=== PATIENT | male | born 1960 | race Caucasian/White ===

== ENCOUNTER 2017-08-24 23:50 | Inpatient (IN) | payer OTHER ==
[~2017-08-24] VITALS: Ht 182.9 cm; Wt 77.1 kg
[~2017-08-24 23:50] MED LIST: HIV MED PO; INSU100C SQ; INSU100V7 SQ; PARO40TA PO
[2017-08-25] VITALS: BP 104/57
[2017-08-25] MEDS ORDERED: INSULIN REGULAR, HUMAN 1,000 UNITS/10 ML VIAL IV ONE
[2017-08-25 00:10] LABS: BASOPHILS # (AUTO) 0.1 K/uL (0.0-8.0); BASOPHILS % (AUTO) 1.3 % (0.0-2.0); EOSINOPHILS # (AUTO) 0.2 K/uL (0.0-0.7); EOSINOPHILS % (AUTO) 2.8 % (0.0-7.0); HEMATOCRIT 42.5 % (36.7-47.1); HEMOGLOBIN 14.9 g/dL (12.5-16.3); LYMPHOCYTES # (AUTO) 2.4 K/uL (20.0-40.0); LYMPHOCYTES % (AUTO) 42.9 % (20.5-51.5); MEAN CORPUSCULAR HGB CONC 35 g/dL (32.5-36.3); MEAN CORPUSCULAR VOLUME 94.1 fL (73.0-96.2); MONOCYTES # (AUTO) 0.6 K/uL (2.0-10.0); MONOCYTES % (AUTO) 10.6 % (0.0-11.0); NEUTROPHILS # (AUTO) 2.4 K/uL (1.8-8.9); NEUTROPHILS % (AUTO) 42.4 % (38.5-71.5); PLATELET COUNT (AUTO) 290 K/uL (152-348); RED BLOOD CELL COUNT(AUTO) 4.52 MIL/uL (4.06-5.63); WHITE BLOOD COUNT (AUTO) 5.7 K/uL (3.6-10.2)
[2017-08-25 00:20] LABS: BILIRUBIN,DIRECT 0.1 mg/dL (0.0-0.2); BILIRUBIN,TOTAL 0.3 mg/dL (0.2-1.0); POTASSIUM 4.5 mmol/L (3.5-5.1); TOTAL PROTEIN, SERUM 8.1 g/dL (6.4-8.2)
[2017-08-25] MEDS ORDERED: ASPIRIN 325 MG TABLET PO ONE (00:45)
[2017-08-25] MEDS ORDERED: FOLIC ACID 5 MG/ML VIAL IV ONE (00:45)
--- NOTE | 2017-08-25 01:37 | NUR ---
PT AAOX4, IN NO DISTRESS, REPORT CALLED, SPOKE WITH RADAH.LISA
[2017-08-25] MEDS ORDERED: INSULIN REGULAR, HUMAN 300 UNIT/3 ML VIAL ONE (01:39)
[2017-08-25] MEDS ORDERED: ASPIRIN 325 MG TABLET ONE (01:46)
[2017-08-25] MEDS ORDERED: THIAMINE HCL 200 MG/2 ML VIAL ONE (01:46)
--- NOTE | 2017-08-25 01:51 | NUR ---
PER ROOM SERVICE FOOD SERVER (RK) AND PHARMACIST BOARD HANDLER RAY. FOLIC ACID IV NOT AVAILABLE
[2017-08-25] MEDS: THIAMINE HCL 200 MG/2 ML VIAL IV ONE ×2 (01:58→02:24)
[2017-08-25] MEDS ORDERED: FOLIC ACID 1 MG TABLET PO ONE (02:00)
[2017-08-25] MEDS ORDERED: FOLIC ACID 1 MG TABLET ONE (02:26)
[2017-08-25] MEDS ORDERED: MORPHINE SULFATE 2 MG/1 ML DISP.SYRIN IV PRN (02:30)
[2017-08-25] MEDS ORDERED: LORAZEPAM 2 MG/1 ML VIAL IV PRN (02:30)
[2017-08-25] MEDS ORDERED: THIAMINE HCL INJ 100 MG in IV DEXTROSE 5% 50 ML IV SCH (02:30)
[2017-08-25] MEDS ORDERED: ACETAMINOPHEN 325 MG TABLET PO PRN (02:30)
[2017-08-25] MEDS ORDERED: MAGNESIUM HYDROXIDE 30 ML LIQUID UDC PO PRN (02:30)
[2017-08-25] MEDS ORDERED: ONDANSETRON 4 MG/2 ML VIAL IV PRN (02:30)
[2017-08-25] MEDS: IV 1/2NS 1000 ML 1,000 ML IV PRN ×2 (03:16→18:07)
--- NOTE | 2017-08-25 03:18 | NUR ---
Vit B1 Inj 0230 was held d/t given already in ER. Charge nurse aware.
[2017-08-25 04:00] VITALS: BP 96/49
[2017-08-25] MEDS ORDERED: MORPHINE SULFATE 4 MG/1 ML DISP.SYRIN IV PRN (07:15)
--- NOTE | 2017-08-25 08:00 | NUR ---
ALERT AND VERBALLY RESPONSIVE, ORIENTED TO NAME NO SS OF DISTRESS, DENIES HEADACHE, N/V. CLOSELY MONITORED
[2017-08-25] MEDS: FOLIC ACID 1 MG TABLET PO SCH (08:27)
[2017-08-25] MEDS: ASPIRIN EC 81 MG TABLET.DR PO SCH (08:28)
[2017-08-25] MEDS: PANTOPRAZOLE SODIUM 40 MG TABLET.DR PO SCH (08:28)
[2017-08-25] MEDS ORDERED: HIV MED PO SCH (09:00)
[2017-08-25 11:38] VITALS: BP 136/78
--- NOTE | 2017-08-25 12:00 | NUR ---
SEEN BY PHYSICAL THERAPIST SEE NOTES
[2017-08-25] MEDS: THIAMINE HCL 100 MG TABLET PO SCH (14:11)
[2017-08-25 16:00] VITALS: BP 116/75
[2017-08-25 16:18] VITALS: BP 99/48
--- NOTE | 2017-08-25 18:50 | NUR ---
NO ACUTE CHANGE CONTINUE OBSERVATION
[2017-08-25 20:21] VITALS: BP 138/84
[2017-08-25] MEDS ORDERED: MIRTAZAPINE 15 MG TABLET PO SCH (21:00)
[2017-08-25] MEDS ORDERED: DOCUSATE SODIUM 100 MG CAPSULE PO SCH (21:00)
[2017-08-25] MEDS ORDERED: DOCUSATE SODIUM 250 MG CAPSULE PO SCH (21:00)
[2017-08-26 00:23] VITALS: BP 135/70
[2017-08-26 05:00] VITALS: BP 119/72
--- NOTE | 2017-08-26 06:00 | NUR ---
UNEVENTFUL NIGHT .PATIENT MOST OF THE NIGHT . DUE MEDICATION SCAN AND GIVEN .NO COMPLAINED RECEIVED FROM PATIENT .
[2017-08-26] MEDS: PANTOPRAZOLE SODIUM 40 MG TABLET.DR PO SCH (06:32)
[2017-08-26] MEDS: FOLIC ACID 1 MG TABLET PO SCH (08:29)
[2017-08-26] MEDS: THIAMINE HCL 100 MG TABLET PO SCH (08:29)
[2017-08-26] MEDS: ASPIRIN EC 81 MG TABLET.DR PO SCH (08:29)
[2017-08-26 11:05] VITALS: BP 133/81
[2017-08-26 15:26] VITALS: BP 133/82
[2017-08-26] MEDS ORDERED: HYDROCODONE/APAP 5-325MG TABLET PO PRN (15:30)
--- NOTE | 2017-08-26 15:53 | NUR ---
PT LEFT THE FACILITY WITHOUT TELLING ANYONE. I CAME BACK FORM LUNCH AND HE WAS GONE. CHARGE NOTIFIED, DOCTOR NOTIFIED.
[2017-08-26] MEDS ORDERED: MIRTAZAPINE 15 MG TABLET PO SCH (21:00)
== END 2017-08-26 15:30 | disposition left against medical advice (07) | DRG 47 ==
LOC: ER 23:52 → TELE 08-25 02:16 → MED 08-26 11:25
PROVIDERS: ADMIT Internal Medicine; ATTEND Internal Medicine
DX: G45.9 Transient cerebral ischemic attack, unspecified (principal); G92 Toxic encephalopathy; F33.2 Major depressive disorder, recurrent severe without psychotic features; E87.2 Acidosis; I67.2 Cerebral atherosclerosis; E11.65 Type 2 diabetes mellitus with hyperglycemia; F10.229 Alcohol dependence with intoxication, unspecified; Y90.8 Blood alcohol level of 240 mg/100 ml or more; Z79.4 Long term (current) use of insulin; F09 Unspecified mental disorder due to known physiological condition; Z79.899 Other long term (current) drug therapy; F17.210 Nicotine dependence, cigarettes, uncomplicated; Z86.19 Personal history of other infectious and parasitic diseases; I25.10 Atherosclerotic heart disease of native coronary artery without angina pectoris; I10 Essential (primary) hypertension; M48.02 Spinal stenosis, cervical region; M25.78 Osteophyte, vertebrae; Z86.73 Personal history of transient ischemic attack (TIA), and cerebral infarction without residual deficits; B19.20 Unspecified viral hepatitis C without hepatic coma; E78.5 Hyperlipidemia, unspecified
CPT/HCPCS: 36415; 70030-TC; 70450; 71010; 72125; 85025; 85730; 93005; 97116; 97530; A4663; G0480; J1815; J3411; J3490; J7030

== ENCOUNTER 2017-08-27 20:08 | Inpatient (IN) | payer OTHER ==
[~2017-08-27] VITALS: Ht 182.9 cm; Wt 77.3 kg
[~2017-08-27 20:08] MED LIST changes: -INSU100C SQ; -PARO40TA PO
[2017-08-27] MEDS ORDERED: IV NORMAL SALINE 1000 ML BAG IV ONE (20:45)
--- NOTE | 2017-08-27 21:00 | NUR ---
pt refusing iv placement - informed of need for iv to treat elevated bllod glucose of 599 - and of complications that can develop if glucose level not adequately treated - pt continues to refuse
[2017-08-27 21:03] LABS: ABG BASE EXCESS -5.8 mmol/L; ABG PCO2 35.3 mmHg (35.0-45.0); ABG PH 7.348 (7.350-7.450); ABG PO2 78.4 mmHg (75.0-100.0); ABG SITE RIGHT RADIAL; ABG TOTAL HEMOGLOBIN 15.1 G/dL (13.5-18.0); COHb 3.7 % (0.5-1.5); MetHb 0.1 % (0.0-1.5); O2Hb 91.4 % (94.0-97.0)
[2017-08-27 21:20] LABS: BASOPHILS # (AUTO) 0.1 K/uL (0.0-8.0); BASOPHILS % (AUTO) 0.8 % (0.0-2.0); EOSINOPHILS # (AUTO) 0.1 K/uL (0.0-0.7); EOSINOPHILS % (AUTO) 1.2 % (0.0-7.0); HEMATOCRIT 45.4 % (40-50); HEMOGLOBIN 15.7 G/DL (14.0-18.0); LYMPHOCYTES # (AUTO) 2.1 K/UL (0.8-4.8); LYMPHOCYTES % (AUTO) 31.5 % (20.5-51.5); MEAN CORPUSCULAR HEMOGLOBIN 32.2 UUG (27.0-31.0); MEAN CORPUSCULAR HGB CONC 35 g/dL (32.0-37.0); MEAN CORPUSCULAR VOLUME 93.2 FL (82.0-92.0); MONOCYTES # (AUTO) 0.6 K/UL (0.1-1.30); NEUTROPHILS # (AUTO) 3.9 K/UL (1.8-8.9); NEUTROPHILS % (AUTO) 57.5 % (38.5-71.5); PLATELET COUNT (AUTO) 308 K/UL (150-450); RED BLOOD CELL COUNT(AUTO) 4.87 MIL/UL (4.7-6.1); WHITE BLOOD COUNT (AUTO) 6.8 K/UL (4.0-11.2)
[2017-08-27 21:42] LABS: BILIRUBIN,DIRECT 0.1 mg/dL (0.0-0.2); BILIRUBIN,TOTAL 0.5 mg/dL (0.2-1.0); CREATININE 1.2 mg/dL (0.6-1.3); POTASSIUM 4.5 mmol/L (3.5-5.1); TOTAL PROTEIN, SERUM 8.3 g/dL (6.4-8.2)
[2017-08-27] MEDS ORDERED: PIPERACILLIN/TAZOBACTAM/D5W 3.375 G in PREMIXED 1 EACH IV STA (21:56)
[2017-08-27] MEDS ORDERED: INSULIN REGULAR, HUMAN 1,000 UNITS/10 ML VIAL SUBCUT ONE (22:00)
--- NOTE | 2017-08-27 22:00 | NUR ---
PAGED EPPIC PANEL FOR ADMISSION OF PATIENT. WAITING FOR LJ VALE DNP TO CALL BACK
--- NOTE | 2017-08-27 23:15 | NUR ---
RECEIVED ADMISSION REPORT FROM WILLIAN FROM ER.
[2017-08-28] MEDS ORDERED: IV NS 1000 ML 1,000 ML IV PRN (00:35)
[2017-08-28] MEDS ORDERED: THIAMINE HCL INJ 100 MG in IV DEXTROSE 5% 50 ML IV STA (00:35)
[2017-08-28] MEDS: FOLIC ACID 1 MG TABLET PO SCH ×2 (00:45→09:36)
[2017-08-28] MEDS ORDERED: Z GUARD REMEDY PASTE 57 GM TUBE TOP PRN (00:45)
[2017-08-28] MEDS ORDERED: ONDANSETRON 4 MG/2 ML VIAL IV PRN (00:45)
[2017-08-28] MEDS ORDERED: ACETAMINOPHEN 325 MG TABLET PO PRN (00:45)
[2017-08-28] MEDS ORDERED: DEXTROSE 50% 50 ML DISP.SYRIN IV PRN (00:45)
--- NOTE | 2017-08-28 01:05 | NUR ---
ADMITTED PATIENT FROM ER VIA [facility]. AAOX4, AMBULATORY WITH SLOW STEADY GAIT. DENIES ANY PAIN/DISCOMFORTS AT THIS TIME. ROUTINE ADMISSION CARE DONE. PLAN OF CARE INITIATED.
--- NOTE | 2017-08-28 01:08 | NUR ---
TRANSFERED TO 2ND FLOOR VIA [facility]
[2017-08-28 01:20] VITALS: BP 132/84
[2017-08-28] MEDS: BLOOD SUGAR DIAGNOSTIC 1 EACH STRIP VI SCH ×5 (01:49→21:11)
[2017-08-28] MEDS: INSULIN REGULAR, HUMAN 300 UNIT/3 ML VIAL SQ PRN ×5 (01:52→21:16)
[2017-08-28] MEDS: INSULIN DETEMIR 300 UNIT/3 ML CARTRIDGE SQ SCH ×2 (01:55→21:13)
[2017-08-28] MEDS ORDERED: THIAMINE HCL 200 MG/2 ML VIAL ONE (01:58)
--- NOTE | 2017-08-28 01:58 | NUR ---
PATIENT BEEN REFUSING IV PLACEMENT, NO IV MEDICATIONS WAS GIVEN. BS 398MG/DL SLIDING SCALE COVERAGE GIVEN ORDERED. DENIES ANY S/S OF HYPERGLYCEMIA. HS SNACK PROVIDED. WILL MONITOR.
--- NOTE | 2017-08-28 02:09 | NUR ---
NO IVF ADMINISTRATION INITIATED, PT HAS NO IV LINE, PT REFUSED
[2017-08-28 04:00] VITALS: BP 109/61
--- NOTE | 2017-08-28 06:05 | NUR ---
SLEPT GOOD. NO COMPLAINT PRESENTED ALL NIGHT. ALL NEEDS ATTENDED AND MET. NO SIGNIFICANT EVENT REPORTED ALL NIGHT. VS STABLE.
[2017-08-28 07:07] LABS: BASOPHILS # (AUTO) 0.1 K/uL (0.0-8.0); BASOPHILS % (AUTO) 1.2 % (0.0-2.0); EOSINOPHILS # (AUTO) 0.1 K/uL (0.0-0.7); EOSINOPHILS % (AUTO) 1.6 % (0.0-7.0); HEMOGLOBIN 14.2 g/dL (12.5-16.3); LYMPHOCYTES # (AUTO) 1.4 K/uL (20.0-40.0); LYMPHOCYTES % (AUTO) 19.7 % (20.5-51.5); MEAN CORPUSCULAR HGB CONC 36 g/dL (32.5-36.3); MEAN CORPUSCULAR VOLUME 92.6 fL (73.0-96.2); MONOCYTES # (AUTO) 0.6 K/uL (2.0-10.0); MONOCYTES % (AUTO) 8.4 % (0.0-11.0); NEUTROPHILS # (AUTO) 4.8 K/uL (1.8-8.9); NEUTROPHILS % (AUTO) 69.1 % (38.5-71.5); PLATELET COUNT (AUTO) 242 K/uL (152-348); RED BLOOD CELL COUNT(AUTO) 4.31 MIL/uL (4.06-5.63)
[2017-08-28 07:12] LABS: BILIRUBIN,TOTAL 0.4 mg/dL (0.2-1.0); CREATININE 0.9 mg/dL (0.6-1.3); PHOSPHOROUS 3.4 mg/dL (2.5-4.9); TOTAL PROTEIN, SERUM 7.5 g/dL (6.4-8.2)
[2017-08-28] MEDS: THIAMINE HCL 100 MG TABLET PO SCH (09:36)
[2017-08-28 11:18] VITALS: BP 113/71
[2017-08-28] MEDS ORDERED: LORAZEPAM 2 MG/1 ML VIAL IV PRN (13:15)
[2017-08-28] MEDS: LORAZEPAM 1 MG TABLET PO PRN ×2 (14:37→20:14)
[2017-08-28 15:21] VITALS: BP 112/78
[2017-08-28] MEDS: INSULIN LISPRO 1000 UNITS/10 ML VIAL(HUMALOG) SQ SCH (17:35)
--- NOTE | 2017-08-29 05:15 | NUR ---
GIVEN ATIVAN ORDERED AND REQUESTED BY PT, SLEPT MOST OF THE NIGHT. NO OTHER COMPLAINTS DURING SHIFT. BS WAS 297 LAST NIGHT, GIVEN COVERAGE PER SLIDING SCALE. SNACK GIVEN. STILL REFUSING IV. PT HAS BEEN TAKING ORAL FLUIDS. TOLERATED WELL.
[2017-08-29] MEDS: BLOOD SUGAR DIAGNOSTIC 1 EACH STRIP VI SCH ×4 (06:43→20:05)
[2017-08-29 06:56] VITALS: BP 99/63
[2017-08-29 07:01] LABS: BASOPHILS # (AUTO) 0.1 K/uL (0.0-8.0); BASOPHILS % (AUTO) 1.4 % (0.0-2.0); EOSINOPHILS # (AUTO) 0.2 K/uL (0.0-0.7); EOSINOPHILS % (AUTO) 2.6 % (0.0-7.0); HEMATOCRIT 43.1 % (36.7-47.1); HEMOGLOBIN 15.2 g/dL (12.5-16.3); LYMPHOCYTES # (AUTO) 1.7 K/uL (20.0-40.0); LYMPHOCYTES % (AUTO) 28.1 % (20.5-51.5); MEAN CORPUSCULAR HEMOGLOBIN 32.7 uug (23.8-33.4); MEAN CORPUSCULAR HGB CONC 35 g/dL (32.5-36.3); MONOCYTES # (AUTO) 0.7 K/uL (2.0-10.0); MONOCYTES % (AUTO) 10.7 % (0.0-11.0); NEUTROPHILS # (AUTO) 3.5 K/uL (1.8-8.9); NEUTROPHILS % (AUTO) 57.2 % (38.5-71.5); PLATELET COUNT (AUTO) 208 K/uL (152-348); RED BLOOD CELL COUNT(AUTO) 4.63 MIL/uL (4.06-5.63); WHITE BLOOD COUNT (AUTO) 6.1 K/uL (3.6-10.2)
[2017-08-29 07:07] LABS: BILIRUBIN,TOTAL 0.6 mg/dL (0.2-1.0); CREATININE 0.9 mg/dL (0.6-1.3); POTASSIUM 3.8 mmol/L (3.5-5.1); TOTAL PROTEIN, SERUM 7.1 g/dL (6.4-8.2)
[2017-08-29 07:14] LABS: THYROID STIMULATING HORMONE 1.179 mIU/mL (0.358-3.740)
--- NOTE | 2017-08-29 08:30 | NUR ---
AWAKE ALERT COOPERATE WELL NO ACUTE DISTRESS OR PAIN RESTING WITH CALL VALDEZ IN REACH AND INSTRUCTION TO CALL WHEN NEEDED
[2017-08-29] MEDS: THIAMINE HCL 100 MG TABLET PO SCH (09:20)
[2017-08-29] MEDS: FOLIC ACID 1 MG TABLET PO SCH (09:20)
[2017-08-29] MEDS: INSULIN REGULAR, HUMAN 300 UNIT/3 ML VIAL SQ PRN ×4 (09:23→20:07)
[2017-08-29] MEDS: LORAZEPAM 1 MG TABLET PO PRN ×3 (09:31→20:05)
[2017-08-29] MEDS: INSULIN LISPRO 1000 UNITS/10 ML VIAL(HUMALOG) SQ SCH ×3 (09:34→17:10)
--- NOTE | 2017-08-29 11:00 | NUR ---
DR WEST N SEEN PATIENT AND LAB RESULT AND ORDER D/C PLANNING TO REHAB UNIT IF BED AVAILABLE TUNNEL WORKER WAS INFORM TO REHAB UNIT TO BE EVALUATION FOR D/C
[2017-08-29 11:42] VITALS: BP 113/76
[2017-08-29 15:44] VITALS: BP 117/80
--- NOTE | 2017-08-29 17:30 | NUR ---
STABLE HEMODYNAMIC STATUS ,PAIN AND BLOOD SUGAR UNDER CONTROL ,IMPROVING SAFETY MEASURE PROVIDED CALL LIGHT IN REACH
--- NOTE | 2017-08-29 20:00 | NUR ---
PATIENT AWAKE IN BED. A/O X4. DENIES PAIN OR DISCOMFORT, BUT C/O ANXIETY AND REQUESTING ATIVAN. VSS. NO HEPLOCK NOTED. PATIENT GIVEN ATIVAN 1MG PO PRN FOR ANXIETY. WILL CONTINUE TO MONITOR AND ASSESS. CALL LIGHT IN REACH. ALL NEEDS ATTENDED.
[2017-08-29] MEDS: INSULIN DETEMIR 300 UNIT/3 ML CARTRIDGE SQ SCH (20:06)
[2017-08-29 20:49] VITALS: BP 105/74
--- NOTE | 2017-08-29 22:00 | NUR ---
PATIENT AWAKE IN BED AND C/O OF ANXIETY AND UNABLE TO SLEEP. CALLED OUT TO DR. VALE LICENSED NURSING ASSISTANT FOR FURTHER ORDERS.
[2017-08-29] MEDS ORDERED: MIRTAZAPINE 15 MG TABLET PO ONE (22:15)
--- NOTE | 2017-08-29 22:15 | NUR ---
PATIENT STATED HE TAKES REMERON AT TIMES WHEN HIS ANXIETY IS VERY BAD AND CAN NOT SLEEP. RECEIVED ORDER FOR PATIENT TO RECEIVE REMERON 30MG PO X1. ALL NEEDS ATTENDED.
--- NOTE | 2017-08-30 | NUR ---
PATIENT SLEEPING. NO RESP. DISTRESS NOTED. CALL LIGHT IN REACH.
[2017-08-30 04:38] VITALS: BP 98/60
[2017-08-30] MEDS: BLOOD SUGAR DIAGNOSTIC 1 EACH STRIP VI SCH ×2 (06:33→11:30)
--- NOTE | 2017-08-30 07:06 | NUR ---
PATIENT ASLEEP IN BED. SLEPT WELL THROUGHOUT THE NIGHT. DENIES PAIN OR DISCOMFORT. CALL LIGHT IN REACH .ALL NEEDS ATTENDED.
--- NOTE | 2017-08-30 07:30 | NUR ---
PT VERBALIZES THAT HE IS NOT EATING BREAKFAST YET AND WANTS TO HOLD THE HUMALOG AND HUMULIN UNTIL HE IS READY FOR BREAKFAST.PLAN OF CARE TODAY IS TO MANAGE HYPERGLYCEMIA.
--- NOTE | 2017-08-30 08:30 | NUR ---
PT CONTINUES TO NOT WANT TO TAKE HUMALOG AND HUMULIN BECAUSE HE IS NOT READY TO HAVE BREAKFAST. PT TEACHING PROVIDED ABOUT IMPORTANCE OF MANAGING BLOOD SUGAR AT APPROPRIATE LEVEL. PT VERBALIZES UNDERSTANDING OF TEACHING, BUT STILL REFUSES TO TAKE HUMALOG AT THIS TIME. PT CONTINUES TO REST, WITH NO SIGNS OF DISTRESS.
[2017-08-30] MEDS: THIAMINE HCL 100 MG TABLET PO SCH (09:51)
[2017-08-30] MEDS: FOLIC ACID 1 MG TABLET PO SCH (09:51)
[2017-08-30] MEDS: INSULIN LISPRO 1000 UNITS/10 ML VIAL(HUMALOG) SQ SCH ×2 (09:54→11:30)
[2017-08-30] MEDS: LORAZEPAM 1 MG TABLET PO PRN (09:59)
--- NOTE | 2017-08-30 11:30 | NUR ---
PT REFUSED ACCU CHECK AND STATES THAT HE WILL BE DISCHARGING TODAY AND DOESN'T WANT TO HAVE IT DONE.
[2017-08-30 11:35] VITALS: BP 99/61
--- NOTE | 2017-08-30 13:00 | NUR ---
PT DISCHARGE HOME WAS GIVEN BUS TOKEN, [employer] PACKET, AND ALL BELONGINGS. PT REFUSED THE FLU SHOT STATING, " I DON'T NEED IT". PT VITALS STABLE, CALM, COOPERATIVE. PT PLAN OF CARE COMPLETE, PT UNDERSTANDS TEACHING AND IMPORTANCE OF BLOOD SUGAR MANAGEMENT.
[2017-08-30 15:20] VITALS: BP 99/61
== END 2017-08-30 13:00 | disposition home or self-care (01) | DRG 420 ==
LOC: ER 20:10 → TELE 23:21 → MED 08-28 12:24
PROVIDERS: ADMIT Nurse Practitioner Acute Care; ATTEND Nurse Practitioner Acute Care
DX: E11.65 Type 2 diabetes mellitus with hyperglycemia (principal); G93.41 Metabolic encephalopathy; G45.9 Transient cerebral ischemic attack, unspecified; I10 Essential (primary) hypertension; F10.230 Alcohol dependence with withdrawal, uncomplicated; Z79.4 Long term (current) use of insulin; Z59.0 Homelessness; Y90.9 Presence of alcohol in blood, level not specified; A53.9 Syphilis, unspecified; Z91.19 Patient's noncompliance with other medical treatment and regimen; F17.210 Nicotine dependence, cigarettes, uncomplicated; F32.9 Major depressive disorder, single episode, unspecified; Z76.5 Malingerer [conscious simulation]; B19.20 Unspecified viral hepatitis C without hepatic coma; Z86.73 Personal history of transient ischemic attack (TIA), and cerebral infarction without residual deficits; Z91.14 Patient's other noncompliance with medication regimen
CPT/HCPCS: 36415; 36600; 70030-TC; 70450; 71010; 83605; 83735; 84100; 84443; 85025; 85730; 87040; 93005; A4663; G0480; J1815; J2060; J3411

== ENCOUNTER 2018-08-13 17:10 | Emergency (ER) | payer OTHER ==
[~2018-08-13] VITALS: Ht 175.3 cm; Wt 77.1 kg
[2018-08-13] MEDS ORDERED: IV NORMAL SALINE 1000 ML BAG IV ONE ×2 (17:30)
--- NOTE | 2018-08-13 17:31 | NUR ---
Unable to reconcile home medications, pt arrived with [facility] and is unable to provide information. Per EMS they were unable to obtain any information.
[2018-08-13 17:39] LABS: BASOPHILS # (AUTO) 0.1 K/uL (0.0-8.0); BASOPHILS % (AUTO) 0.8 % (0.0-2.0); EOSINOPHILS # (AUTO) 0.1 K/uL (0.0-0.7); EOSINOPHILS % (AUTO) 1.3 % (0.0-7.0); HEMATOCRIT 42.7 % (36.7-47.1); HEMOGLOBIN 14.9 g/dL (12.5-16.3); LYMPHOCYTES # (AUTO) 2.8 K/uL (20.0-40.0); MEAN CORPUSCULAR HEMOGLOBIN 32.5 uug (23.8-33.4); MEAN CORPUSCULAR HGB CONC 35 g/dL (32.5-36.3); MEAN CORPUSCULAR VOLUME 93.1 fL (73.0-96.2); MONOCYTES # (AUTO) 0.5 K/uL (2.0-10.0); MONOCYTES % (AUTO) 4.5 % (0.0-11.0); NEUTROPHILS # (AUTO) 7.2 K/uL (1.8-8.9); NEUTROPHILS % (AUTO) 67.4 % (38.5-71.5); PLATELET COUNT (AUTO) 359 K/uL (152-348); RED BLOOD CELL COUNT(AUTO) 4.59 MIL/uL (4.06-5.63); WHITE BLOOD COUNT (AUTO) 10.7 K/uL (3.6-10.2)
--- NOTE | 2018-08-13 17:39 | NUR ---
PT IS IN BED #2B. DR RUIZ EVALUATED THE PT.
[2018-08-13 17:49] LABS: BILIRUBIN,DIRECT 0.1 mg/dL (0.0-0.2); BILIRUBIN,TOTAL 0.3 mg/dL (0.2-1.0); CREATININE 1.5 mg/dL (0.6-1.3); TOTAL PROTEIN, SERUM 7.7 g/dL (6.4-8.2)
[2018-08-13] MEDS ORDERED: INSULIN REGULAR, HUMAN 300 UNIT/3 ML VIAL ONE (17:55)
[2018-08-13] MEDS ORDERED: INSULIN REGULAR, HUMAN 300 UNIT/3 ML VIAL SQ ONE (18:00)
--- NOTE | 2018-08-13 21:45 | NUR ---
Patient provided urine sample, sent to lab. Patient provided a hospital sandwich.
[2018-08-13 21:50] LABS: *BILIRUBIN,URIN NEGATIVE (NEGATIVE); *BLOOD, URINE NEGATIVE (NEGATIVE); *CLARITY,URINE CLEAR (CLEAR); *COLOR,URINE YELLOW (YELLOW); *KETONES,URINE 1+ (NEGATIVE); *PROTEIN,URINE NEGATIVE (NEGATIVE); *UROBILINOGEN,URINE 0.2 E.U./dl (NORMAL); LEUKOCYTE ESTERASE ,URINE NEGATIVE (NEGATIVE); NITRITE, URINE NEGATIVE (NEGATIVE); PH,URINE 5.5 (5.0-8.0); UGLUCOSE 2+ (NEGATIVE)
[2018-08-13 21:56] LABS: WBC,URINE 0-3 /HPF (0-3)
--- NOTE | 2018-08-14 00:10 | NUR ---
Patient still has unsteady gait, but able to ambulated 5 feet. Patient states he is feeling dizzy, and stated that he just went thru a divorce and was feeling suicidal, was planning on shooting himself. notified.
[2018-08-14] MEDS ORDERED: INSULIN REGULAR, HUMAN 300 UNIT/3 ML VIAL IV ONE ×2 (02:00→05:15)
[2018-08-14] MEDS ORDERED: INSULIN REGULAR, HUMAN 300 UNIT/3 ML VIAL ONE ×2 (02:01→05:05)
--- NOTE | 2018-08-14 02:11 | NUR ---
CALLED ART [facility] OPTICAL DISPENSER TO EVAL PATIENT REQUESTED BY DR GLEASON. ART WILL COME AFTER UDS IS COMPLETED
--- NOTE | 2018-08-14 02:40 | NUR ---
Art Capilla GETTER OPERATOR at bedside for psych eval.
[2018-08-14 03:07] LABS: *AMPHETAMINE, URINE NEGATIVE (NEGATIVE); *BARBITURATE, URINE NEGATIVE (NEGATIVE); *CANNABINOID, URINE NEGATIVE (NEGATIVE); *COCCAINE, URINE NEGATIVE (NEGATIVE); *OPIATE, URINE NEGATIVE (NEGATIVE); *PHENCYCLIDINE SCREEN,URINE NEGATIVE (NEGATIVE)
[2018-08-14] MEDS ORDERED: LORAZEPAM 2 MG/1 ML VIAL ONE (03:14)
[2018-08-14] MEDS ORDERED: LORAZEPAM 2 MG/1 ML VIAL IV ONE (03:15)
--- NOTE | 2018-08-14 03:38 | NUR ---
Faxed facesheet and summary report to [facility] intake . Called back #
--- NOTE | 2018-08-14 04:39 | NUR ---
Pt sleeping in bed, no acute signs of distress.
--- NOTE | 2018-08-14 06:12 | NUR ---
Pt sleeping in bed, no acute signs of distress.
--- NOTE | 2018-08-14 06:17 | NUR ---
ABI FROM [facility] CALLED BACK FOR TRANSFER INFOR. PATIENT WILL BE GOING [facility]. ACCEPTING MD IS DR LUNDBERG. CALL # FOR REPORT IS
--- NOTE | 2018-08-14 06:20 | NUR ---
CALLED [facility] TO TRANSFER PATIENT TO [facility]. ETA IS [phone]. TRIP #[id number]
--- NOTE | 2018-08-14 06:44 | NUR ---
Report given to Thelma GONZALEZ [facility] Johnnie Palencia.
--- NOTE | 2018-08-14 06:53 | NUR ---
Report given to Vicente potter.
--- NOTE | 2018-08-14 08:22 | NUR ---
PT WAS TRANSFERED TO [facility] VIA BLS AMBULANCE. REPORT WAS GIVEN AMBULANCE EMT. PT WAS NOT SHOWING ANY S/S OF ACUTE DISTRESS , WAS COOPERATIVE.
== END 2018-08-14 08:29 | disposition short-term general hospital (02) ==
LOC: ER 17:12
DX: F10.129 Alcohol abuse with intoxication, unspecified (principal); E11.65 Type 2 diabetes mellitus with hyperglycemia; I10 Essential (primary) hypertension; F17.290 Nicotine dependence, other tobacco product, uncomplicated; Z79.4 Long term (current) use of insulin
CPT/HCPCS: 36415 ×2; 71045; 80048; 80076; 80307; 81001; 82009; 85025; 93005; 96361; 96372; 96374; 96375; 96376; 99284; 99406; G0480 ×2; J1815 ×3; J2060; A4663; J7030

== ENCOUNTER 2019-02-08 21:10 | Emergency (ER) | payer OTHER ==
[~2019-02-08] VITALS: Ht 172.7 cm; Wt 79.4 kg
--- NOTE | 2019-02-08 21:20 | NUR ---
Dr Simeon evaluated patient. [employer] at bedside. Pt bib rescue [id number] for alcohol intoxication.
[2019-02-08] MEDS ORDERED: OLANZAPINE 10 MG VIAL IM ONE (21:38)
[2019-02-08] MEDS ORDERED: diphenhydrAMINE 50 MG/1 ML VIAL ONE (21:38)
[2019-02-08] MEDS ORDERED: INSULIN REGULAR, HUMAN 300 UNIT/3 ML VIAL ONE (21:42)
[2019-02-08] MEDS: diphenhydrAMINE 50 MG/1 ML VIAL IM ONE (21:42)
[2019-02-08] MEDS: OLANZAPINE 10 MG VIAL IM ONE (21:43)
[2019-02-08] MEDS: INSULIN REGULAR, HUMAN 300 UNIT/3 ML VIAL SQ ONE (21:44)
[2019-02-08 21:58] LABS: BASOPHILS # (AUTO) 0.1 K/uL (0.0-8.0); BASOPHILS % (AUTO) 0.7 % (0.0-2.0); EOSINOPHILS # (AUTO) 0.1 K/uL (0.0-0.7); EOSINOPHILS % (AUTO) 1.2 % (0.0-7.0); HEMATOCRIT 42.5 % (36.7-47.1); HEMOGLOBIN 14.7 g/dL (12.5-16.3); LYMPHOCYTES # (AUTO) 2.8 K/uL (20.0-40.0); LYMPHOCYTES % (AUTO) 30.9 % (20.5-51.5); MEAN CORPUSCULAR HEMOGLOBIN 31.3 uug (23.8-33.4); MEAN CORPUSCULAR HGB CONC 35 g/dL (32.5-36.3); MEAN CORPUSCULAR VOLUME 90.2 fL (73.0-96.2); MONOCYTES # (AUTO) 0.3 K/uL (2.0-10.0); MONOCYTES % (AUTO) 3.8 % (0.0-11.0); NEUTROPHILS # (AUTO) 5.7 K/uL (1.8-8.9); NEUTROPHILS % (AUTO) 63.4 % (38.5-71.5); PLATELET COUNT (AUTO) 378 K/uL (152-348)
[2019-02-08 22:09] LABS: BILIRUBIN,DIRECT 0.1 mg/dL (0.0-0.2); BILIRUBIN,TOTAL 0.3 mg/dL (0.2-1.0); POTASSIUM 4.2 mmol/L (3.5-5.1); TOTAL PROTEIN, SERUM 8.6 g/dL (6.4-8.2)
--- NOTE | 2019-02-08 22:26 | NUR ---
Pt medically cleared by Dr Simeon. [facility] Officer Carlyn Pinon#[id number] and Officer Kia Pinon#[id number].
[2019-02-08 22:29] VITALS: BP 105/68
== END 2019-02-08 22:29 ==
LOC: ER 21:14
DX: F10.129 Alcohol abuse with intoxication, unspecified (principal); E11.65 Type 2 diabetes mellitus with hyperglycemia; I10 Essential (primary) hypertension; F17.200 Nicotine dependence, unspecified, uncomplicated; Z79.4 Long term (current) use of insulin; Z79.899 Other long term (current) drug therapy; Y90.9 Presence of alcohol in blood, level not specified
CPT/HCPCS: 96372 ×3; 99283; J1200; J1815; A4663; J2358

== ENCOUNTER 2019-03-15 17:03 | Emergency (ER) | payer OTHER ==
[~2019-03-15] VITALS: Ht 182.9 cm; Wt 81.6 kg
--- NOTE | 2019-03-15 17:03 | NUR ---
PT BIB RA 88 FROM [facility], WHERE THE PT WAS LEANING ON THE COUNTER NOT RESPONDING TO THE SELECTOR PACKER. WHILE IN ER, PT AWAKE, ORIENTED TO NAME, RELUCTANT TO COMMUNICATE.PT KEEP TELLIN " i CANT THINK RIGHT NOW, NEED SOMETHINGTO CALM ME DOWN".
[2019-03-15] MEDS ORDERED: OLANZAPINE 10 MG VIAL IM ONE ×2 (17:14→17:15)
[2019-03-15] MEDS ORDERED: ONDANSETRON ODT 4 MG TAB.RAPDIS ONE (17:15)
[2019-03-15] MEDS ORDERED: ONDANSETRON ODT 4 MG TAB.RAPDIS SL ONE (17:15)
--- NOTE | 2019-03-15 17:30 | NUR ---
PTREQUESTING THE URINAL AND INSISTING TO STAND UP, ASSISSTED THE PT TO STAND UP. PT MISSED THE URINAL AND URINATED ON THE FLOOR. HAD TO REINFORCE THE PT TO GO BACK TO BED AND LIE DOWN.
[2019-03-15 17:39] LABS: BASOPHILS # (AUTO) 0.1 K/uL (0.0-8.0); BASOPHILS % (AUTO) 0.4 % (0.0-2.0); EOSINOPHILS # (AUTO) 0.1 K/uL (0.0-0.7); EOSINOPHILS % (AUTO) 0.5 % (0.0-7.0); HEMATOCRIT 41.6 % (36.7-47.1); LYMPHOCYTES # (AUTO) 2.7 K/uL (20.0-40.0); LYMPHOCYTES % (AUTO) 20.5 % (20.5-51.5); MEAN CORPUSCULAR HEMOGLOBIN 30.9 uug (23.8-33.4); MEAN CORPUSCULAR HGB CONC 34 g/dL (32.5-36.3); MEAN CORPUSCULAR VOLUME 91.7 fL (73.0-96.2); MONOCYTES # (AUTO) 0.7 K/uL (2.0-10.0); MONOCYTES % (AUTO) 5.2 % (0.0-11.0); NEUTROPHILS # (AUTO) 9.8 K/uL (1.8-8.9); NEUTROPHILS % (AUTO) 73.4 % (38.5-71.5); PLATELET COUNT (AUTO) 371 K/uL (152-348); RED BLOOD CELL COUNT(AUTO) 4.54 MIL/uL (4.06-5.63); WHITE BLOOD COUNT (AUTO) 13.3 K/uL (3.6-10.2)
[2019-03-15] MEDS ORDERED: IV NORMAL SALINE 1000 ML BAG IV ONE (17:45)
[2019-03-15 17:46] LABS: *BILIRUBIN,URIN NEGATIVE (NEGATIVE); *BLOOD, URINE NEGATIVE (NEGATIVE); *CLARITY,URINE CLEAR (CLEAR); *COLOR,URINE YELLOW (YELLOW); *KETONES,URINE NEGATIVE (NEGATIVE); *UROBILINOGEN,URINE 0.2 E.U./dl (NORMAL); LEUKOCYTE ESTERASE ,URINE NEGATIVE (NEGATIVE); NITRITE, URINE NEGATIVE (NEGATIVE); PH,URINE 5.5 (5.0-8.0); UGLUCOSE 2+ (NEGATIVE)
[2019-03-15 17:47] LABS: CARBON DIOXIDE 16 mmol/L (21-32); CHLORIDE 98 mmol/L (98-107); CREATININE 1.1 mg/dL (0.6-1.3); POTASSIUM 4.1 mmol/L (3.5-5.1); UREA NITROGEN, BLOOD 15 mg/dL (7-18)
[2019-03-15 17:48] LABS: GLUCOSE 407 mg/dL (74-106)
[2019-03-15 17:53] LABS: ALANINE AMINOTRANSFERASE 25 U/L (16-63); ALKALINE PHOSPHATASE 130 U/L (50-136); ASPARTATE AMINOTRANSFERASE 14 U/L (15-37); BILIRUBIN,DIRECT 0.1 mg/dL (0.0-0.2); BILIRUBIN,TOTAL 0.3 mg/dL (0.2-1.0); TOTAL PROTEIN, SERUM 8.4 g/dL (6.4-8.2)
[2019-03-15 17:54] LABS: ACETAMINOPHEN < 2.0 ug/mL (10-30)
[2019-03-15 17:55] LABS: *AMPHETAMINE, URINE NEGATIVE (NEGATIVE); *BARBITURATE, URINE NEGATIVE (NEGATIVE); *CANNABINOID, URINE NEGATIVE (NEGATIVE); *COCCAINE, URINE NEGATIVE (NEGATIVE); *OPIATE, URINE NEGATIVE (NEGATIVE); *PHENCYCLIDINE SCREEN,URINE NEGATIVE (NEGATIVE)
[2019-03-15 17:56] LABS: ETHANOL 391 MG/DL (0-0)
[2019-03-15 18:01] LABS: MUCUS,URINE FEW /LPF (0-FEW); SQUAMOUS EPITHELIAL CELL,UR FEW /HPF (NONE SEEN)
--- NOTE | 2019-03-15 18:20 | NUR ---
PT CALM ENOUGH TO GO TO CT.
[2019-03-15] MEDS ORDERED: INSULIN REGULAR, HUMAN 300 UNIT/3 ML VIAL SQ ONE (18:30)
[2019-03-15] MEDS ORDERED: INSULIN REGULAR, HUMAN 300 UNIT/3 ML VIAL ONE (18:35)
--- NOTE | 2019-03-15 18:35 | NUR ---
PT BACK FROM CT. UNABLE TO HOLD STILL. CT NOT DONE. NOTIFIED
--- NOTE | 2019-03-15 20:20 | NUR ---
Patient back in room from CT.
--- NOTE | 2019-03-15 20:21 | NUR ---
Attempted to place patient on pulse oximeter monitoring while patient rests, patient refused. Pt stated, "until i get my food, i do not want to cooperate".
--- NOTE | 2019-03-15 22:02 | NUR ---
Patient in bed, resting. On pulse oximetry monitoring. O2 saturation stable.
--- NOTE | 2019-03-16 00:12 | NUR ---
Patient in bed, asleep, NAD.
--- NOTE | 2019-03-16 02:52 | NUR ---
Patient up and cooperative, ERMD notified. Patient given written and verbal discharge instructions. Patient verbalizes understanding of instructions. Patient is ambulatory with steady gait. Refuses offer of senior living placement. Patient given list of available shelters in surrounding area.
[2019-03-16 02:53] VITALS: BP 142/69
== END 2019-03-16 02:54 | disposition home or self-care (01) ==
LOC: ER 17:06
DX: R41.82 Altered mental status, unspecified (principal); F10.129 Alcohol abuse with intoxication, unspecified; E11.65 Type 2 diabetes mellitus with hyperglycemia; I10 Essential (primary) hypertension; F17.200 Nicotine dependence, unspecified, uncomplicated; Z79.4 Long term (current) use of insulin; Z79.899 Other long term (current) drug therapy; Y90.8 Blood alcohol level of 240 mg/100 ml or more
CPT/HCPCS: 36415; 70450; 80048; 80076; 80307; 81000; 81001; 85025; 87086; 93005; 96360; 96372 ×2; 99284; G0480 ×2; G0481; J1815; A4663; J2358; J7030; Q0162